=== PATIENT | female | born 1955 | race Caucasian/White ===

== ENCOUNTER → 2024-07-15 06:14 | Day surgery (SDC) | payer MEDICARE, SELFPAY | LOC: GI 06:14 | PROVIDERS: ATTENDING PHYSICIAN Internal Medicine Gastroenterology | DX: Z12.11 Encounter for screening for malignant neoplasm of colon (principal); K64.8 Other hemorrhoids; K51.40 Inflammatory polyps of colon without complications; K63.89 Other specified diseases of intestine; D12.2 Benign neoplasm of ascending colon; K51.00 Ulcerative (chronic) pancolitis without complications | CPT/HCPCS: 45385; 45380; 88305 ==